=== PATIENT | male | born 1990 | race Caucasian/White ===

== ENCOUNTER → 2017-12-08 | Outpatient (CLI) | payer BC ==
--- NOTE | 2017-12-08 16:24 | Diagnostic Imaging Report ---
Indication: Low back pain x1 year Technique: 4 views of the lumbar spine Comparison: None Findings: Bony alignment is normal. Vertebral body heights are preserved. The disc spaces are preserved. Facet joint spaces are preserved. Sacroiliac joint spaces are preserved Impression: Negative
== END | disposition home or self-care (01) ==
LOC: RAD 14:48
DX: M54.31 Sciatica, right side (principal); M54.5 Low back pain
CPT/HCPCS: 72114